=== PATIENT | female | born 1960 | race Caucasian/White ===

== ENCOUNTER 2016-08-08 05:31 | Day surgery (SDC) | payer BC ==
--- NOTE | ~2016-08-08 | EGD ---
EGD REPORT [facility] [address] [address] NAME: JOHNSON VACA : 56 STATUS : REG [facility] PAT#: [id number] AGE: 56 ADM/REG DATE : 08/08/16 MR#: [id number] REPORT SERV DATE: 08/08/16 DICTATED BY: BETTIE PRAKASH DATE: 08/08/16 REPORT STATUS : Draft [facility] DATE: 08/08/16 Endoscopy Center Patient Name: Johnson Vaca Date of : 1960 Attending MD: BETTIE PRAKASH MD Procedure Date No Time: 08/08/2016 Procedure: Upper GI endoscopy Indications: Esophageal reflux Referring MD: WADE RAMIREZ Medicines: Monitored Anesthesia Care Complications: No immediate complications. Procedure: Pre-Anesthesia Assessment: - ASA Grade Assessment: II - A patient with mild systemic disease. After obtaining informed consent, the endoscope was passed under direct vision. Throughout the procedure, the patient's blood pressure, pulse, and oxygen saturations were monitored continuously. The GIF [id number] was introduced through the mouth, and advanced to the second part of duodenum. The upper GI endoscopy was accomplished without difficulty. The patient tolerated the procedure well. Findings: The Z-line was irregular and was found at the gastroesophageal junction. Biopsies were taken with a cold forceps for histology. Localized mildly erythematous mucosa without bleeding was found in the gastric antrum. Biopsies were taken with a cold forceps for histology. The duodenal bulb and 2nd part of the duodenum were normal. The cardia and gastric fundus were normal on retroflexion. Impression: - Z-line irregular, at the gastroesophageal junction. Biopsied. - Erythematous mucosa in the antrum. Biopsied. - Normal duodenal bulb and 2nd part of the duodenum. Recommendation: - Patient has a contact number available for emergencies. The signs and symptoms of potential delayed complications were discussed with the patient. Return to normal activities tomorrow. Written discharge instructions were provided to the patient. - Regular diet. - Continue present medications. - Await pathology results. - Return to GI clinic in 1 year. EGD REPORT [facility] [address] [place] [address] [place] [address] NAME: JOHNSON VACA : [birth year] STATUS : REG [facility] PAT#: [id number] AGE: 56 ADM/REG DATE : 08/08/16 MR#: [id number] REPORT SERV DATE: 08/08/16 DICTATED BY: BETTIE PRAKASH DATE: 08/08/16 REPORT STATUS : Draft TRANSCRIBED BY: [employer] DATE: 08/08/16 - Follow an antireflux regimen. Procedure Code(s): --- Professional --- 72285, Esophagogastroduodenoscopy, flexible, transoral; with biopsy, single or multiple Diagnosis Code(s): --- Professional --- K22.8, Other specified diseases of esophagus K31.9, Disease of stomach and duodenum, unspecified K21.9, Gastro-esophageal reflux disease without esophagitis CPT copyright 2013 [employer]. All rights reserved. The codes documented in this report are preliminary and upon etl application developer review may be revised to meet current compliance requirements. BETTIE PRAKASH MD 08/08/2016 7:24 AM This report has been signed electronically. Number of Addenda: 0 Note Initiated On: 08/08/2016 7:04 AM Scope Withdrawal Time 0 hours 0 minutes 0 seconds [address] [place] [address]
--- NOTE | ~2016-08-08 | EGD ---
EGD REPORT [facility] [address] [address] NAME: JOHNSON VACA : 56 STATUS : REG [facility] PAT#: [id number] AGE: 56 ADM/REG DATE : 08/08/16 MR#: [id number] REPORT SERV DATE: 08/10/16 DICTATED BY: BETTIE PRAKASH DATE: 08/10/16 REPORT STATUS : Draft [facility] DATE: 08/10/16 Endoscopy Center Patient Name: Johnson Vaca Date of : 1960 Attending MD: BETTIE PRAKASH MD Procedure Date No Time: 08/08/2016 Procedure: Upper GI endoscopy Indications: Esophageal reflux Referring MD: WADE RAMIREZ Medicines: Monitored Anesthesia Care Complications: No immediate complications. Procedure: Pre-Anesthesia Assessment: - ASA Grade Assessment: II - A patient with mild systemic disease. After obtaining informed consent, the endoscope was passed under direct vision. Throughout the procedure, the patient's blood pressure, pulse, and oxygen saturations were monitored continuously. The GIF H190 [id number] was introduced through the mouth, and advanced to the second part of duodenum. The upper GI endoscopy was accomplished without difficulty. The patient tolerated the procedure well. Findings: The Z-line was irregular and was found at the gastroesophageal junction. Biopsies were taken with a cold forceps for histology. Localized mildly erythematous mucosa without bleeding was found in the gastric antrum. Biopsies were taken with a cold forceps for histology. The duodenal bulb and 2nd part of the duodenum were normal. The cardia and gastric fundus were normal on retroflexion. Impression: - Z-line irregular, at the gastroesophageal junction. Biopsied. - Erythematous mucosa in the antrum. Biopsied. - Normal duodenal bulb and 2nd part of the duodenum. Recommendation: - Patient has a contact number available for emergencies. The signs and symptoms of potential delayed complications were discussed with the patient. Return to normal activities tomorrow. Written discharge instructions were provided to the patient. - Regular diet. - Continue present medications. - Await pathology results. - Return to GI clinic in 1 year. EGD REPORT [facility] [address] [place] [address] [place]. [address] NAME: JOHNSON VACA : [birth year] STATUS : REG [facility] PAT#: [id number] AGE: 56 ADM/REG DATE : 08/08/16 MR#: [id number] REPORT SERV DATE: 08/10/16 DICTATED BY: BETTIE PRAKASH DATE: 08/10/16 REPORT STATUS : Draft TRANSCRIBED BY: ERUCES DATE: 08/10/16 - Follow an antireflux regimen. Procedure Code(s): --- Professional --- 17285, Esophagogastroduodenoscopy, flexible, transoral; with biopsy, single or multiple Diagnosis Code(s): --- Professional --- K22.8, Other specified diseases of esophagus K31.9, Disease of stomach and duodenum, unspecified K21.9, Gastro-esophageal reflux disease without esophagitis CPT copyright 2013 [employer]. All rights reserved. The codes documented in this report are preliminary and upon oracle hyperion consultant review may be revised to meet current compliance requirements. BETTIE PRAKASH MD 08/08/2016 7:24 AM This report has been signed electronically. Number of Addenda: 0 Note Initiated On: 08/08/2016 7:04 AM Scope Withdrawal Time 0 hours 0 minutes 0 seconds [address] [place] [address]
[~2016-08-08 05:31] MED LIST: BIOTIN5 MG PO; CELEXA40 MG PO; HEMOCYTE324 MG PO; KLONO5 PO; LIPOTRIAD1 CAP PO; MOTRIN IB200 MG PO; NEUR600 PO; NEXIUM40 PO; OS500+D PO; PROTONIX PO; RANITIDINE300 MG PO; SUCR PO; THERGRANM
== END 2016-08-08 23:59 | disposition home or self-care (01) ==
LOC: DMU 05:31
PROVIDERS: Internal Medicine Gastroenterology
PROC: 0DB48ZX Excision of Esophagogastric Junction, Via Natural or Artificial Opening Endoscopic, Diagnostic (ICD-10-PCS; 2016-08-08)
PROC: 0DB68ZX Excision of Stomach, Via Natural or Artificial Opening Endoscopic, Diagnostic (ICD-10-PCS; principal; 2016-08-08 07:30)
DX: K29.50 Unspecified chronic gastritis without bleeding (principal); K22.8 Other specified diseases of esophagus; K31.9 Disease of stomach and duodenum, unspecified; K44.9 Diaphragmatic hernia without obstruction or gangrene; F41.9 Anxiety disorder, unspecified; Z88.2 Allergy status to sulfonamides; Z88.1 Allergy status to other antibiotic agents
CPT/HCPCS: 88305